=== PATIENT | male | born 1965 ===

== ENCOUNTER → 2020-01-16 | Outpatient (CLI) | payer BC ==
--- NOTE | 2020-01-16 17:30 | Diagnostic Imaging Report ---
Indication: Neck pain Technique: Grayscale and duplex images of the thyroid Comparison: none Findings: Right thyroid lobe measures 4.5 cm length x 1.2 cm AP. Left thyroid lobe measures 4.5 cm length x 1.3 cm AP. Both thyroid lobes demonstrate very heterogeneous appearance. At least 2 nodules are seen in the right thyroid lobe. One of these in the lower pole is hyperechoic, wider than tall, measures approximately 5 mm diameter. A second is hypoechoic, well-circumscribed, wider than tall, smooth margins, no calcifications A nodule is seen in the left thyroid lobe which is solid, smooth margins, wider than tall, mixed echogenicity, measures 2.3 cm long axis dimension. Impression: 2 nodules in the right thyroid lobe, both of which are TI RADS 4 nodules for which no follow-up is necessary due to the small size TI RADS 4 Nodule in the left thyroid lobe, for which biopsy is recommended by size criteria
== END | disposition home or self-care (01) ==
LOC: ULS 14:10
DX: M54.2 Cervicalgia (principal); E04.1 Nontoxic single thyroid nodule
CPT/HCPCS: 76536